=== PATIENT | female | born 1970 | race Caucasian/White ===

== ENCOUNTER 2019-11-05 05:38 | Observation (INO) ==
[2019-11-05] MEDS ORDERED: AMPICILLIN/SULBACTAM 3,000 MG in SODIUM CHLORIDE 0.9% 100 ML IV STA (06:08)
[2019-11-05] MEDS ORDERED: ONDANSETRON 4 MG/2 ML VIAL IV STA (06:08)
[2019-11-05] MEDS ORDERED: fentaNYL 100 MCG/2 ML VIAL IV STA (06:09)
[2019-11-05] MEDS ORDERED: ONDANSETRON 4 MG/2 ML VIAL ONE (06:18)
[2019-11-05] MEDS ORDERED: fentaNYL 100 MCG/2 ML VIAL ONE (06:19)
[2019-11-05] MEDS ORDERED: AMPICILLIN/SULBACTAM 3,000 MG VIAL ONE (06:19)
[2019-11-05 06:22] LABS: Basophils # 0.1 10*3/uL (0.0-0.2); Basophils % 0.4 % (0.0-0.8); Eosinophils # 0.1 10*3/uL (0.0-0.87); Eosinophils % 0.6 % (0.00-10.9); Hematocrit 48.3 VOL% (35.7-47.0); Immature Granulocytes % 0.3 %; Immature Granulocytes Absolute 0.04 #; Lymphocytes # 1.6 10*3/uL (1.4-4.0); Mean Corpuscular HGB Conc 33.1 GM/DL (32-36); Mean Corpuscular Volume 89.8 FL (87-102); Mean Platelet Volume 10.5 FL (9.6-12.0); Monocytes % 9.1 % (1.7-12.7); Neutrophils % 76.6 % (38.7-73.9); Platelet Count 287 T/CUMM (130-400); Red Blood Count 5.38 MC/CUMM (3.8-5.5); Red Cell Distribution Width 13.8 % (9.3-17.3); White Blood Count 12.6 T/CUMM (4-12)
[2019-11-05 06:45] LABS: Albumin 4.2 G/DL (3.4-5.0); Bilirubin,Total 1.4 MG/DL (0.2-1.0); Calcium 10.1 MG/DL (8.5-10.1); Osmolality,Calculated 263.4 MOS/KG (273-304); Total Protein 8.1 G/DL (6.4-8.3)
[2019-11-05 07:07] LABS: Apearance,Urine CLEAR (Clear); Bilirubin,Urine Negative (Negative); Blood, Urine Negative (Negative); Glucose,Urine (UA) Negative (Negative); Ketones,Urine 80 mg/dL (Negative); Mucus,Urine Occasional /LPF (Occasional); Nitrite,Urine Negative (Negative); Protein,Urine Negative; RBC,Urine 1 /HPF (0-4); Squamous Epithelial Cell,Urine Occasional /HPF (0-10); Urine Color Straw (Yellow); Urine Specific Gravity > 1.060 (1.001-1.035); Urine Urobilinogen < 2.0 EU/DL (0.2-1.0); WBC,Urine <1 /HPF (0-6)
[2019-11-05] MEDS ORDERED: PROMETHAZINE 25 MG/1 ML VIAL IM PRN (08:17)
[2019-11-05] MEDS ORDERED: MAGNESIUM SULF RIDER 2 GM in PREMIX 1 EACH IV PRN (08:17)
[2019-11-05] MEDS ORDERED: MAGNESIUM SULF RIDER 4 GM in PREMIX 1 EACH IV PRN (08:17)
[2019-11-05] MEDS ORDERED: POTASSIUM CHLORIDE RIDER 10 MEQ in PREMIX 1 EACH IV PRN (08:17)
[2019-11-05] MEDS ORDERED: AMPICILLIN/SULBACTAM 3,000 MG in SODIUM CHLORIDE 0.9% 100 ML IV SCH (08:30)
[2019-11-05] MEDS: ONDANSETRON 4 MG/2 ML VIAL IV PRN ×2 (09:13→14:54)
[2019-11-05] MEDS: MEPERIDINE 25 MG/1 ML VIAL IV PRN ×2 (09:15→14:53)
[2019-11-05] MEDS: PANTOPRAZOLE 40 MG VIAL IV SCH (10:38)
[2019-11-05] MEDS: DEXTROSE 5% NACL 0.9% 1,000 ML IV SCH ×2 (11:01→21:01)
[2019-11-05] MEDS ORDERED: PROMETHAZINE 25 MG/1 ML VIAL IV PRN (12:07)
[2019-11-05] MEDS: AMPICILLIN/SULBACTAM 3,000 MG in SODIUM CHLORIDE 0.9% 100 ML IV SCH ×2 (14:48→21:02)
[2019-11-05] MEDS ORDERED: ACETAMINOPHEN 500 MG TABLET PO PRN (20:50)
[2019-11-05] MEDS ORDERED: ACETAMINOPHEN 500 MG TABLET PO SCH (21:00)
[2019-11-06] MEDS: AMPICILLIN/SULBACTAM 3,000 MG in SODIUM CHLORIDE 0.9% 100 ML IV SCH ×2 (02:45→08:28)
[2019-11-06] MEDS: DEXTROSE 5% NACL 0.9% 1,000 ML IV SCH (04:34)
[2019-11-06 05:37] LABS: Basophils % 0.8 % (0.0-0.8); Eosinophils # 0.2 10*3/uL (0.0-0.87); Eosinophils % 2.9 % (0.00-10.9); Hematocrit 36.6 VOL% (35.7-47.0); Immature Granulocytes % 0.2 %; Immature Granulocytes Absolute 0.01 #; Lymphocytes # 1.5 10*3/uL (1.4-4.0); Lymphocytes % 29.2 % (21.3-54.2); Mean Corpuscular HGB Conc 32.8 GM/DL (32-36); Mean Corpuscular Volume 91.5 FL (87-102); Mean Platelet Volume 11.3 FL (9.6-12.0); Monocytes % 10.6 % (1.7-12.7); Neutrophils % 56.3 % (38.7-73.9); Platelet Count 234 T/CUMM (130-400); Red Cell Distribution Width 13.9 % (9.3-17.3); White Blood Count 5.2 T/CUMM (4-12)
[2019-11-06 06:06] LABS: Albumin 2.9 G/DL (3.4-5.0); Bilirubin,Total 1.3 MG/DL (0.2-1.0); Calcium 8.3 MG/DL (8.5-10.1); Osmolality,Calculated 277.3 MOS/KG (273-304); Total Protein 5.8 G/DL (6.4-8.3)
[2019-11-06 07:05] LABS: Hepatitis B Core IgM Quant 0.07 Index; Hepatitis B Surface Ag Quant < 0.10 Index; Hepatitis B Surface Ag Result Negative (Negative); Hepatitis C Virus Ab Quant 0.05 Index; Hepatitis C Virus Ab Result Negative (Negative)
[2019-11-06] MEDS: PANTOPRAZOLE 40 MG VIAL IV SCH (08:27)
[2019-11-06 08:55] VITALS: BP 99/74
[2019-11-06] MEDS ORDERED: AMOXICILLIN/CLAV 875 MG TABLET PO SCH (09:00)
== END 2019-11-06 11:57 | disposition home or self-care (01) ==
LOC: N.EDINP 05:38 → N.ED 05:38 → N.2W 10:03
PROVIDERS: ADMIT Internal Medicine; ATTEND Internal Medicine

== ENCOUNTER 2020-10-08 09:53 | Observation (INO) ==
[2020-10-08] MEDS ORDERED: SODIUM CHLORIDE 0.9% 1,000 ML IV STA (12:14)
[2020-10-08] MEDS ORDERED: HYDROmorphone 2 MG/1 ML VIAL IV STA (12:14)
[2020-10-08] MEDS ORDERED: PIPERACILLIN/TAZOBACTAM 3,375 MG in SODIUM CHLORIDE 0.9% 100 ML IV STA (12:14)
[2020-10-08 12:26] LABS: Albumin 3.9 G/DL (3.4-5.0); Bilirubin,Total 0.5 MG/DL (0.2-1.0); Calcium 9.8 MG/DL (8.5-10.1); Osmolality,Calculated 265.2 MOS/KG (273-304); Potassium 4.1 MMOL/L (3.5-5.1); Total Protein 8.6 G/DL (6.4-8.3)
[2020-10-08 12:45] LABS: Basophils % 0.6 % (0.0-0.8); Eosinophils % 0.2 % (0.00-10.9); Hematocrit 50.4 VOL% (35.7-47.0); Hemoglobin 15.4 GM/DL (12.0-16.0); Immature Granulocytes % 0.2 %; Immature Granulocytes Absolute 0.01 #; Lymphocytes % 20.9 % (21.3-54.2); Mean Corpuscular HGB Conc 30.6 GM/DL (32-36); Mean Platelet Volume 10.8 FL (9.6-12.0); Monocytes % 18.1 % (1.7-12.7); Platelet Count 265 T/CUMM (130-400); Red Blood Count 5.09 MC/CUMM (3.8-5.5)
[2020-10-08 13:34] LABS: Lymphocytes 19 % (20-55); Platelet Estimate Normal; Segmented Neutrophils 62 % (50-85); Target Cells Slight; Total Cells Counted 100
[2020-10-08 13:42] LABS: Bacteria,Urine Moderate /HPF (Few); Bilirubin,Urine Negative (Negative); Blood, Urine Negative (Negative); Glucose,Urine (UA) Negative (Negative); Ketones,Urine 5 mg/dL (Negative); Mucus,Urine Occasional /LPF (Occasional); Nitrite,Urine Negative (Negative); Protein,Urine Negative; RBC,Urine 1 /HPF (0-4); Squamous Epithelial Cell,Urine Few /HPF (0-10); Urine Appearance Slightly Hazy (Clear); Urine Color Yellow (Yellow); Urine Urobilinogen < 2.0 EU/DL (0.2-1.0); WBC,Urine 1 /HPF (0-6)
[2020-10-08] MEDS ORDERED: KETOROLAC 30 MG/1 ML VIAL IV STA (15:16)
[2020-10-08] MEDS ORDERED: DEXTROSE 50% 25 GM/50 ML VIAL IV PRN (15:50)
[2020-10-08] MEDS ORDERED: GLUCAGON 1 MG VIAL IM PRN (15:50)
[2020-10-08] MEDS ORDERED: ACETAMINOPHEN 325 MG TABLET PO PRN (15:50)
[2020-10-08] MEDS ORDERED: ONDANSETRON 4 MG/2 ML VIAL IV PRN (15:50)
[2020-10-08] MEDS ORDERED: LACTATED RINGERS 1,000 ML IV SCH (16:00)
[2020-10-08 16:19] LABS: Thyroid Stimulating Hormone 1.05 uIU/ml (0.358-3.74)
[2020-10-08] MEDS: ENOXAPARIN 40 MG/0.4 ML SYRINGE SUBCUT SCH (17:53)
[2020-10-08] MEDS: KETOROLAC 30 MG/1 ML VIAL IV PRN (21:24)
[2020-10-08] MEDS: PIPERACILLIN/TAZOBACTAM 3,375 MG in SODIUM CHLORIDE 0.9% 100 ML IV SCH (21:25)
[2020-10-09] MEDS: PIPERACILLIN/TAZOBACTAM 3,375 MG in SODIUM CHLORIDE 0.9% 100 ML IV SCH ×2 (05:36→11:53)
[2020-10-09 06:26] LABS: Basophils % 0.6 % (0.0-0.8); Eosinophils % 0.8 % (0.00-10.9); Hematocrit 43.8 VOL% (35.7-47.0); Hemoglobin 13.4 GM/DL (12.0-16.0); Immature Granulocytes % 0.3 %; Immature Granulocytes Absolute 0.01 #; Lymphocytes % 28.1 % (21.3-54.2); Mean Corpuscular HGB Conc 30.6 GM/DL (32-36); Mean Corpuscular Volume 99.3 FL (87-102); Mean Platelet Volume 10.8 FL (9.6-12.0); Monocytes % 18.7 % (1.7-12.7); Neutrophils % 51.5 % (38.7-73.9); Platelet Count 225 T/CUMM (130-400); Red Blood Count 4.41 MC/CUMM (3.8-5.5); White Blood Count 3.6 T/CUMM (4-12)
[2020-10-09 06:41] LABS: Calcium 8.5 MG/DL (8.5-10.1); Osmolality,Calculated 277.4 MOS/KG (273-304); Potassium 4.5 MMOL/L (3.5-5.1)
[2020-10-09 07:19] LABS: Atypical Lymphocytes Few; Hypochromasia 1+; Lymphocytes 39 % (20-55); Segmented Neutrophils 49 % (50-85); Total Cells Counted 100
[2020-10-09 07:20] LABS: Microcytosis Slight; Platelet Estimate Normal
[2020-10-09] MEDS ORDERED: LACTATED RINGERS 1,000 ML IV ONE (07:42)
[2020-10-09] MEDS ORDERED: LACTATED RINGERS 500 ML IV ONE (07:46)
[2020-10-09] MEDS ORDERED: PANTOPRAZOLE 40 MG TABLET PO SCH (09:00)
[2020-10-09] MEDS: KETOROLAC 30 MG/1 ML VIAL IV PRN (09:08)
[2020-10-09 12:49] VITALS: BP 95/56
[2020-10-09] MEDS: ENOXAPARIN 40 MG/0.4 ML SYRINGE SUBCUT SCH (16:11)
== END 2020-10-09 17:37 | disposition home or self-care (01) ==
LOC: N.ED 09:53 → N.EDINP 09:53 → N.3E 17:16
PROVIDERS: ADMIT Internal Medicine; ATTEND Internal Medicine

== ENCOUNTER 2021-06-10 05:54 | Inpatient (IN) ==
[2021-06-08 15:44] LABS: Basophils % 0.5 % (0.0-0.8); Eosinophils # 0.1 10*3/uL (0.0-0.87); Eosinophils % 1.6 % (0.00-10.9); Hemoglobin 14.4 GM/DL (12.0-16.0); Immature Granulocytes % 0.2 %; Immature Granulocytes Absolute 0.01 #; Lymphocytes # 1.9 10*3/uL (1.4-4.0); Lymphocytes % 34.3 % (21.3-54.2); Mean Platelet Volume 10.7 FL (9.6-12.0); Monocytes % 9.1 % (1.7-12.7); Neutrophils % 54.3 % (38.7-73.9); Platelet Count 263 T/CUMM (130-400); Red Blood Count 4.89 MC/CUMM (3.8-5.5); Red Cell Distribution Width 13.8 % (9.3-17.3); White Blood Count 5.5 T/CUMM (4-12)
[2021-06-08 16:02] LABS: Calcium 9.6 MG/DL (8.5-10.1); Osmolality,Calculated 277.5 MOS/KG (273-304); Potassium 4.1 MMOL/L (3.5-5.1)
[~2021-06-10 05:54] MED LIST: ACETAMINOPHEN 500 MG TABLET PO ONE; DIAZEPAM 5 MG TABLET PO ONE; FAMOTIDINE 20 MG TABLET PO ONE; GABAPENTIN 400 MG CAPSULE PO ONE; LACTATED RINGERS 1,000 ML IV SCH
[2021-06-10] MEDS ORDERED: ALVIMOPAN 12 MG CAPSULE PO ONE (06:00)
[2021-06-10] MEDS ORDERED: LACTATED RINGERS 1,000 ML IV SCH (06:00)
[2021-06-10] MEDS ORDERED: ERTAPENEM 1,000 MG in SODIUM CHLORIDE 0.9% 100 ML IV ONE (06:00)
[2021-06-10] MEDS ORDERED: DIAZEPAM 5 MG TABLET ONE (06:08)
[2021-06-10] MEDS ORDERED: ACETAMINOPHEN 500 MG TABLET ONE (06:09)
[2021-06-10] MEDS ORDERED: FAMOTIDINE 20 MG TABLET ONE (06:09)
[2021-06-10] MEDS ORDERED: INDOCYANINE GREEN 25 MG VIAL IV ONE (06:14)
[2021-06-10] MEDS ORDERED: TISSUE ADHESIVE 1 EACH APPLICATOR TOP ONE (06:14)
[2021-06-10] MEDS ORDERED: MIDAZOLAM 2 MG/2 ML VIAL ONE (06:35)
[2021-06-10] MEDS ORDERED: ROCURONIUM 50 MG/5 ML VIAL IV ONE ×2 (06:36→09:13)
[2021-06-10] MEDS ORDERED: fentaNYL 100 MCG/2 ML VIAL ONE (06:36)
[2021-06-10] MEDS ORDERED: propofoL 200 MG/20 ML VIAL IV ONE ×2 (06:36→10:19)
[2021-06-10] MEDS ORDERED: LIDOCAINE 2% 5 ML VIAL ONE (06:36)
[2021-06-10] MEDS ORDERED: GABAPENTIN 400 MG CAPSULE ONE (07:03)
[2021-06-10] MEDS ORDERED: LIDOCAINE 1% 5 ML VIAL ONE (07:05)
[2021-06-10] MEDS ORDERED: DEXAMETHASONE 4 MG/1 ML VIAL ONE ×2 (07:05→09:46)
[2021-06-10] MEDS ORDERED: BUPIVACAINE MPF 0.25% 30 ML VIAL ONE (07:05)
[2021-06-10] MEDS ORDERED: ePHEDrine 50 MG/ML VIAL ONE (08:36)
[2021-06-10] MEDS ORDERED: SODIUM CHLORIDE 0.9% 100 ML IV ONE (09:03)
[2021-06-10] MEDS ORDERED: LACTATED RINGERS 1,000 ML IV ONE (09:03)
[2021-06-10] MEDS ORDERED: PHENYLEPHRINE 1 MG/10 ML SYRINGE IV ONE (09:22)
[2021-06-10] MEDS ORDERED: ONDANSETRON 4 MG/2 ML VIAL ONE ×2 (09:46→12:54)
[2021-06-10] MEDS ORDERED: NEOSTIGMINE 10 MG/10 ML VIAL ONE (10:01)
[2021-06-10] MEDS ORDERED: GLYCOPYRROLATE 0.4 MG/2 ML VIAL ONE (10:01)
[2021-06-10] MEDS ORDERED: SODIUM CHLORIDE 0.9% 1,000 ML IV ONE (10:33)
[2021-06-10] MEDS ORDERED: SEVOFLURANE 1 UNIT/15 MINUTE INH ONE ×2 (11:10→12:00)
[2021-06-10 11:38] LABS: Blood, Urine Moderate mg/dL (Negative); Glucose,Urine (UA) Negative (Negative); Ketones,Urine Negative (Negative); Mucus,Urine Occasional /LPF (Occasional); Nitrite,Urine Negative (Negative); Protein,Urine Negative; RBC,Urine 71 /HPF (0-4); Squamous Epithelial Cell,Urine Occasional /HPF (0-10); Urine Appearance CLEAR (Clear); Urine Color BLUE (Yellow)
[2021-06-10] MEDS ORDERED: ONDANSETRON 4 MG/2 ML VIAL IV PRN ×2 (12:08→13:27)
[2021-06-10 12:13] LABS: Bilirubin,Urine Small mg/dL (Negative)
[2021-06-10] MEDS: HYDROmorphone 2 MG/1 ML VIAL IV PRN ×5 (12:53→21:44)
[2021-06-10] MEDS ORDERED: HYDROmorphone 2 MG/1 ML VIAL ONE (12:54)
[2021-06-10] MEDS ORDERED: PROMETHAZINE INJ 12.5 MG in SODIUM CHLORIDE 0.9% 50 ML IV PRN (13:14)
[2021-06-10] MEDS ORDERED: PROMETHAZINE 25 MG/1 ML VIAL ONE (13:16)
[2021-06-10] MEDS ORDERED: NABUMETONE 750 MG PO PRN (13:27)
[2021-06-10 14:28] LABS: Basophils % 0.2 % (0.0-0.8); Hematocrit 44.8 VOL% (35.7-47.0); Immature Granulocytes % 0.3 %; Immature Granulocytes Absolute 0.03 #; Lymphocytes # 0.5 10*3/uL (1.4-4.0); Lymphocytes % 4.4 % (21.3-54.2); Mean Corpuscular HGB Conc 31.3 GM/DL (32-36); Mean Corpuscular Volume 93.7 FL (87-102); Mean Platelet Volume 10.7 FL (9.6-12.0); Monocytes % 2.7 % (1.7-12.7); Neutrophils % 92.4 % (38.7-73.9); Platelet Count 254 T/CUMM (130-400); Red Blood Count 4.78 MC/CUMM (3.8-5.5); Red Cell Distribution Width 13.5 % (9.3-17.3); White Blood Count 10.4 T/CUMM (4-12)
[2021-06-10 14:47] LABS: Calcium 8.1 MG/DL (8.5-10.1); Osmolality,Calculated 276.8 MOS/KG (273-304); Potassium 3.5 MMOL/L (3.5-5.1)
[2021-06-10 14:57] LABS: Lymphocytes 3 % (20-55); Segmented Neutrophils 96 % (50-85); Total Cells Counted 100
[2021-06-10 14:58] LABS: Platelet Estimate Normal; Spherocytes 1+
[2021-06-10] MEDS: KETOROLAC 30 MG/1 ML VIAL IV SCH ×2 (15:37→18:13)
[2021-06-10] MEDS: LACTATED RINGERS 1,000 ML IV SCH (18:59)
[2021-06-10] MEDS ORDERED: PROGESTERONE 100MG CAP PO SCH (21:00)
[2021-06-10] MEDS ORDERED: diphenhydrAMINE CAP 25 MG CAPSULE PO PRN (21:23)
[2021-06-10] MEDS: ALVIMOPAN 12 MG CAPSULE PO SCH (21:44)
[2021-06-11] MEDS: KETOROLAC 30 MG/1 ML VIAL IV SCH ×3 (00:12→12:38)
[2021-06-11 05:21] LABS: Basophils % 0.3 % (0.0-0.8); Hematocrit 38.4 VOL% (35.7-47.0); Hemoglobin 12.3 GM/DL (12.0-16.0); Immature Granulocytes % 0.4 %; Immature Granulocytes Absolute 0.03 #; Lymphocytes # 1.3 10*3/uL (1.4-4.0); Lymphocytes % 17.7 % (21.3-54.2); Mean Corpuscular Volume 91.6 FL (87-102); Mean Platelet Volume 10.9 FL (9.6-12.0); Monocytes % 10.6 % (1.7-12.7); Platelet Count 241 T/CUMM (130-400); Red Blood Count 4.19 MC/CUMM (3.8-5.5); Red Cell Distribution Width 13.9 % (9.3-17.3); White Blood Count 7.6 T/CUMM (4-12)
[2021-06-11 05:43] LABS: Calcium 8.4 MG/DL (8.5-10.1); Osmolality,Calculated 276.4 MOS/KG (273-304); Potassium 4.3 MMOL/L (3.5-5.1)
[2021-06-11] MEDS: HYDROmorphone 2 MG/1 ML VIAL IV PRN (05:48)
[2021-06-11] MEDS: LACTATED RINGERS 1,000 ML IV SCH (05:57)
[2021-06-11] MEDS ORDERED: ENOXAPARIN 40 MG/0.4 ML SYRINGE SUBCUT SCH (06:00)
[2021-06-11] MEDS ORDERED: PANTOPRAZOLE 40 MG TABLET PO SCH (09:00)
[2021-06-11] MEDS ORDERED: ESTRADIOL 0.1 MG/24 HR TRANSDERM SCH (09:00)
[2021-06-11] MEDS ORDERED: NITROFURANTOIN MACROCRYSTALS 100 MG CAPSULE PO SCH (09:00)
[2021-06-11] MEDS ORDERED: VORTIOXETINE 10 MG PO SCH (09:00)
[2021-06-11] MEDS: ALVIMOPAN 12 MG CAPSULE PO SCH (10:00)
[2021-06-11 15:27] VITALS: BP 114/73
== END 2021-06-11 16:00 | disposition home or self-care (01) | DRG 331 ==
LOC: N.OR 05:54 → N.SDSINP 05:57 → N.3E 05:57
PROVIDERS: ADMIT Surgery; ATTEND Surgery

== ENCOUNTER 2021-06-27 13:51 | Observation (INO) ==
[2021-06-27 15:06] LABS: Basophils # 0.1 10*3/uL (0.0-0.2); Eosinophils % 0.7 % (0.00-10.9); Hematocrit 47.1 VOL% (35.7-47.0); Hemoglobin 15.3 GM/DL (12.0-16.0); Immature Granulocytes % 0.3 %; Immature Granulocytes Absolute 0.02 #; Lymphocytes # 1.7 10*3/uL (1.4-4.0); Lymphocytes % 28.2 % (21.3-54.2); Mean Corpuscular HGB Conc 32.5 GM/DL (32-36); Mean Corpuscular Volume 89.7 FL (87-102); Mean Platelet Volume 10.5 FL (9.6-12.0); Monocytes % 7.9 % (1.7-12.7); Neutrophils % 61.9 % (38.7-73.9); Platelet Count 345 T/CUMM (130-400); Red Blood Count 5.25 MC/CUMM (3.8-5.5); Red Cell Distribution Width 13.2 % (9.3-17.3)
[2021-06-27 15:29] LABS: Albumin 4.4 G/DL (3.4-5.0); Bilirubin,Total 0.8 MG/DL (0.20-1.00); Calcium 9.9 MG/DL (8.5-10.1); Osmolality,Calculated 271.1 MOS/KG (273-304); Total Protein 8.6 G/DL (6.4-8.2)
[2021-06-27 16:27] LABS: Bilirubin,Urine Negative (Negative); Blood, Urine Large mg/dL (Negative); Glucose,Urine (UA) Negative (Negative); Ketones,Urine 20 mg/dL (Negative); Mucus,Urine Many /LPF (Occasional); Nitrite,Urine Negative (Negative); Protein,Urine 100 MG/DL; RBC,Urine 683 /HPF (0-4); Squamous Epithelial Cell,Urine Occasional /HPF (0-10); Urine Appearance CLOUDY (Clear); Urine Color Yellow (Yellow); Urine Specific Gravity 1.023 (1.001-1.035); Urine Urobilinogen < 2.0 EU/DL (0.2-1.0)
[2021-06-27] MEDS ORDERED: LACTATED RINGERS 1,000 ML IV ONE (17:03)
[2021-06-27] MEDS ORDERED: ONDANSETRON 4 MG/2 ML VIAL IV ONE (17:18)
[2021-06-27] MEDS ORDERED: HYDROmorphone 2 MG/1 ML VIAL IV STA ×2 (17:18→17:49)
[2021-06-27] MEDS: ONDANSETRON 4 MG/2 ML VIAL IV PRN (22:24)
[2021-06-27] MEDS: LACTATED RINGERS 1,000 ML IV SCH (22:24)
[2021-06-27] MEDS: diphenhydrAMINE CAP 25 MG CAPSULE PO PRN (22:47)
[2021-06-27] MEDS ORDERED: INFLUENZA VIRUS VACCINE 0.5 ML SYRINGE IM ONE (23:14)
[2021-06-28] MEDS: LACTATED RINGERS 1,000 ML IV SCH ×3 (02:55→15:37)
[2021-06-28] MEDS: ACETAMINOPHEN 325 MG TABLET PO PRN ×2 (04:56→10:42)
[2021-06-28 05:15] LABS: Basophils # 0.1 10*3/uL (0.0-0.2); Basophils % 0.9 % (0.0-0.8); Eosinophils # 0.1 10*3/uL (0.0-0.87); Eosinophils % 2.6 % (0.00-10.9); Hematocrit 38.3 VOL% (35.7-47.0); Hemoglobin 12.4 GM/DL (12.0-16.0); Immature Granulocytes % 0.4 %; Immature Granulocytes Absolute 0.02 #; Lymphocytes # 2.6 10*3/uL (1.4-4.0); Lymphocytes % 48.9 % (21.3-54.2); Mean Corpuscular HGB Conc 32.4 GM/DL (32-36); Mean Corpuscular Volume 90.8 FL (87-102); Mean Platelet Volume 11.1 FL (9.6-12.0); Monocytes % 9.3 % (1.7-12.7); Neutrophils % 37.9 % (38.7-73.9); Platelet Count 266 T/CUMM (130-400); Red Blood Count 4.22 MC/CUMM (3.8-5.5); Red Cell Distribution Width 13.2 % (9.3-17.3); White Blood Count 5.4 T/CUMM (4-12)
[2021-06-28 05:55] LABS: Calcium 8.5 MG/DL (8.5-10.1); Osmolality,Calculated 272.7 MOS/KG (273-304); Potassium 3.8 MMOL/L (3.5-5.1)
[2021-06-28] MEDS: ONDANSETRON 4 MG/2 ML VIAL IV PRN ×2 (07:53→20:48)
[2021-06-28] MEDS ORDERED: PANTOPRAZOLE 40 MG TABLET PO SCH (09:00)
[2021-06-28] MEDS ORDERED: MIDAZOLAM 2 MG/2 ML VIAL ONE (11:57)
[2021-06-28] MEDS ORDERED: fentaNYL 100 MCG/2 ML VIAL ONE (11:57)
[2021-06-28] MEDS ORDERED: GENTAMICIN 80 MG/2 ML VIAL ONE (12:39)
[2021-06-28] MEDS ORDERED: ONDANSETRON 4 MG/2 ML VIAL ONE (12:41)
[2021-06-28] MEDS ORDERED: propofoL 200 MG/20 ML VIAL IV ONE (12:41)
[2021-06-28] MEDS ORDERED: SEVOFLURANE 1 UNIT/15 MINUTE INH ONE (12:41)
[2021-06-28] MEDS ORDERED: LIDOCAINE 2% 5 ML VIAL ONE (12:41)
[2021-06-28] MEDS ORDERED: LACTATED RINGERS 1,000 ML IV ONE (12:43)
[2021-06-28] MEDS ORDERED: HYDROmorphone 2 MG/1 ML VIAL IV PRN (13:17)
[2021-06-28] MEDS ORDERED: ONDANSETRON 4 MG/2 ML VIAL IV PRN (13:17)
[2021-06-28] MEDS: PANTOPRAZOLE 40 MG TABLET PO SCH (15:24)
[2021-06-28] MEDS: NITROFURANTOIN MACROCRYSTALS 100 MG CAPSULE PO SCH (15:25)
[2021-06-28] MEDS: diphenhydrAMINE CAP 25 MG CAPSULE PO PRN ×2 (15:25→21:27)
[2021-06-28] MEDS: VORTIOXETINE 10 MG PO SCH (15:26)
[2021-06-29] MEDS: LACTATED RINGERS 1,000 ML IV SCH ×2 (00:23→09:15)
[2021-06-29] MEDS: ONDANSETRON 4 MG/2 ML VIAL IV PRN (08:15)
[2021-06-29] MEDS: PANTOPRAZOLE 40 MG TABLET PO SCH (08:15)
[2021-06-29] MEDS: OXYBUTYNIN 5 MG TABLET PO SCH ×2 (08:15→16:41)
[2021-06-29] MEDS: NITROFURANTOIN MACROCRYSTALS 100 MG CAPSULE PO SCH (08:15)
[2021-06-29] MEDS: VORTIOXETINE 10 MG PO SCH (08:16)
[2021-06-29] MEDS: PHENAZOPYRIDINE 95 MG TABLET PO SCH ×2 (08:56→11:56)
[2021-06-29] MEDS: ACETAMINOPHEN 325 MG TABLET PO PRN (08:58)
[2021-06-29] MEDS: diphenhydrAMINE CAP 25 MG CAPSULE PO PRN (10:06)
[2021-06-29] MEDS ORDERED: PROMETHAZINE 25 MG TABLET PO PRN ×2 (10:48)
[2021-06-29 15:44] VITALS: BP 105/76
[2021-06-29] MEDS ORDERED: PROGESTERONE 100 MG PO SCH (21:00)
== END 2021-06-29 16:35 | disposition home or self-care (01) ==
LOC: N.EDINP 13:51 → N.ED 13:51 → N.3E 18:42
PROVIDERS: ADMIT Surgery; ATTEND Surgery